=== PATIENT | male | born 1980 | race Two or more races ===

== ENCOUNTER 2021-12-21 10:39 | Emergency (ER) | payer SELFPAY ==
[~2021-12-21] VITALS: Ht 160 cm; Wt 81.8 kg
--- NOTE | 2021-12-21 11:17 | EKG ---
[facility] [address] [place] [id number] Test Date: 2021-12-21 Test Time: 10:50:43 Pat Name: CLIVE SIMEON Department: Room: Gender: M Video Game Creator: : 1980 Requested By: DILCIA Dumas Number: [id number] Reading MD: Dandy Cruz Measurements Intervals [place] Rate: 63 P: 51 PA: 146 QRS: 54 QRSD: 86 T: 44 QT: 388 QTc: 400 Interpretive Statements SINUS RHYTHM NORMAL ECG RI6.02 No previous ECG available for comparison Electronically Signed On 12-23-2021 10:09:39 CDT by Dandy Cruz
[2021-12-21 11:29] LABS: BASO % 1 % (0-3); EOS # 0.1 x10^3/uL (0.0-0.7); EOS % 2 % (0-3); HEMATOCRIT 41.5 % (39.0-53.0); HEMOGLOBIN 14.8 g/dL (13.0-17.5); LYMPH # 1.5 x10^3/uL (1.0-4.8); LYMPH % 29 % (24-48); MEAN CORPUSCULAR HEMOGLOBIN 32 pg (25-35); MEAN CORPUSCULAR HGB CONC 36 g/dL (31-37); MEAN CORPUSCULAR VOLUME 89 fL (79-100); MONO # 0.6 x10^3/uL (0.0-1.1); MONO % 11 % (0-9); NEUT % 57 % (31-73); PLATELET COUNT 245 x10^3/uL (140-400); RED BLOOD COUNT 4.69 x10^6/uL (4.30-5.70); RED CELL DISTRIBUTION WIDTH 12.5 % (11.5-14.5); WHITE BLOOD COUNT 5.3 x10^3/uL (4.0-11.0)
[2021-12-21] MEDS ORDERED: ASPIRIN 325 MG TABLET PO ONE (11:30)
[2021-12-21 11:40] LABS: CALCIUM 8.3 mg/dL (8.5-10.1); CREATININE 1.1 mg/dL (0.7-1.3); GFR 74.1; POTASSIUM 3.7 mmol/L (3.5-5.1)
--- NOTE | 2021-12-21 11:45 | RAD ---
EXAM: Chest, single view. HISTORY: Chest pain. COMPARISON: None. FINDINGS: A frontal view of the chest is obtained. There is no infiltrate, pleural effusion or pneumo thorax. The heart is normal in size. IMPRESSION: No acute pulmonary finding. Electronically signed by: Liudmila Curran MD (12/21/2021 11:43 AM) [id number]
[2021-12-21 11:47] LABS: ALBUMIN 3.2 g/dL (3.4-5.0); ALBUMIN/GLOBULIN RATIO 0.9 (1.0-1.7); MAGNESIUM 2.1 mg/dL (1.8-2.4); TOTAL BILIRUBIN 0.5 mg/dL (0.2-1.0); TOTAL PROTEIN 6.8 g/dL (6.4-8.2)
--- NOTE | 2021-12-21 12:14 | PHYS DOC ---
Past Medical History Past Surgical History: No Surgical History Smoking Status: Never Smoker Alcohol Use: None General Adult EDM: Chief Complaint: CHEST PAIN HPI: HPI: Patient is a 41 year old male who presents with 1 week of left-sided chest pain, he states that the pain is sharp, near his left shoulder and also present in his left scapular region in his back. Patient states that he had a cough recently about 2 weeks ago that lasted for a week, after about a week of coughing, the chest pain started. It is exacerbated by movement, picking up things, moving the left shoulder, and sometimes by touching the left chest or back. Patient is otherwise doing well. He has no shortness of breath or any other symptoms. He has no cardiac history, no family history, no diabetes, no dyslipidemia, no hypertension. Review of Systems: Review of Systems: Constitutional: Denies fever or chills. [] Eyes: Denies change in visual acuity. [] HENT: Denies nasal congestion or sore throat. [] Respiratory: Denies cough or shortness of breath. [] Cardiovascular: Positive left-sided chest pain and left back pain, no edema. [] GI: Denies abdominal pain, nausea, vomiting, bloody stools or diarrhea. [] : Denies dysuria. [] Musculoskeletal: Positive left back pain near the scapula [] Integument: Denies rash. [] Neurologic: Denies headache, focal weakness or sensory changes. [] Endocrine: Denies polyuria or polydipsia. [] Lymphatic: Denies swollen glands. [] Psychiatric: Denies depression or anxiety. [] Heart Score: C/O Chest Pain: Yes HEART Score for Chest Pain: HEART Score for Chest Pain Response (Comments) Value History Slighlty/Non-Suspicious 0 ECG Normal 0 Age < 45 0 Risk Factors No Risk Factors 0 Troponin < Normal Limit 0 Total 0 Risk Factors: Risk Factors: DM, Current or recent (<one month) smoker, HTN, HLP, family history of CAD, obesity. Risk Scores: Score 0 - 3: 2.5% MACE over next 6 weeks - Discharge Home Score 4 - 6: 20.3% MACE over next 6 weeks - Admit for Clinical Observation Score 7 - 10: 72.7% MACE over next 6 weeks - Early Invasive Strategies Current Medications: Current Medications Medications (Trade) Dose Ordered Sig/Hermelindo Start Time Stop Time Status Last Admin Dose Admin Aspirin (Lina Aspirin) 325 mg 1X ONCE 12/21/21 11:30 12/21/21 11:31 DC 12/21/21 11:09 325 MG Allergies: Allergies: Allergies Coded Allergies Type Severity Reaction Last Updated Verified No Known Drug Allergies 12/21/21 No Physical Exam: PE: Constitutional: Well developed, well nourished, no acute distress, non-toxic appearance. [] HENT: Normocephalic, atraumatic, bilateral external ears normal, oropharynx moist, no oral exudates, nose normal. [] Eyes: PERRLA, EOMI, conjunctiva normal, no discharge. [] Neck: Normal range of motion, no tenderness, supple, no stridor. [] Cardiovascular:Heart rate regular rhythm, no murmur, reproducible tenderness on the left chest near the shoulder joint [] Lungs & Thorax: Bilateral breath sounds clear to auscultation [] Abdomen: Bowel sounds normal, soft, no tenderness, no masses, no pulsatile masses. [] Skin: Warm, dry, no erythema, no rash. [] Back: No tenderness, no CVA tenderness. [] Extremities: No tenderness, no cyanosis, no clubbing, ROM intact, no edema. [] Neurologic: Alert and oriented X 3, normal motor function, normal sensory function, no focal deficits noted. [] Psychologic: Affect normal, judgement normal, mood normal. [] Current Patient Data: Labs: Laboratory Tests Test 12/21/21 11:15 White Blood Count 5.3 x10^3/uL (4.0-11.0) Red Blood Count 4.69 x10^6/uL (4.30-5.70) Hemoglobin 14.8 g/dL (13.0-17.5) Hematocrit 41.5 % (39.0-53.0) Mean Corpuscular Volume 89 fL (79-100) Mean Corpuscular Hemoglobin 32 pg (25-35) Mean Corpuscular Hemoglobin Concent 36 g/dL (31-37) Red Cell Distribution Width 12.5 % (11.5-14.5) Platelet Count 245 x10^3/uL (140-400) Neutrophils (%) (Auto) 57 % (31-73) Lymphocytes (%) (Auto) 29 % (24-48) Monocytes (%) (Auto) 11 % (0-9) H Eosinophils (%) (Auto) 2 % (0-3) Basophils (%) (Auto) 1 % (0-3) Neutrophils # (Auto) 3.0 x10^3/uL (1.8-7.7) Lymphocytes # (Auto) 1.5 x10^3/uL (1.0-4.8) Monocytes # (Auto) 0.6 x10^3/uL (0.0-1.1) Eosinophils # (Auto) 0.1 x10^3/uL (0.0-0.7) Basophils # (Auto) 0.0 x10^3/uL (0.0-0.2) Sodium Level 142 mmol/L (136-145) Potassium Level 3.7 mmol/L (3.5-5.1) Chloride Level 109 mmol/L (98-107) H Carbon Dioxide Level 25 mmol/L (21-32) Anion Gap 8 (6-14) Blood Urea Nitrogen 19 mg/dL (8-26) Creatinine 1.1 mg/dL (0.7-1.3) Estimated GFR (Cockcroft-Gault) 74.1 BUN/Creatinine Ratio 17 (6-20) Glucose Level 116 mg/dL (70-99) H Calcium Level 8.3 mg/dL (8.5-10.1) L Magnesium Level 2.1 mg/dL (1.8-2.4) Total Bilirubin 0.5 mg/dL (0.2-1.0) Aspartate Amino Transferase (AST) 20 U/L (15-37) Alanine Aminotransferase (ALT) 33 U/L (16-63) Alkaline Phosphatase 61 U/L (46-116) Troponin I High Sensitivity 5 ng/L (4-75) XA-Qee-C-Type Natriuretic Peptide 48 pg/mL (0-124) Total Protein 6.8 g/dL (6.4-8.2) Albumin 3.2 g/dL (3.4-5.0) L Albumin/Globulin Ratio 0.9 (1.0-1.7) L Thyroid Stimulating Hormone (TSH) 1.139 uIU/mL (0.358-3.74) Laboratory Tests 12/21/21 11:15 Laboratory Tests 12/21/21 11:15 Vital Signs: Vital Signs Date Time Temp Pulse Resp B/P (MAP) Pulse Ox O2 Delivery O2 Flow Rate FiO2 12/21/21 10:48 98.1 66 20 125/58 (80) 97 Room Air 98.1 EKG: EKG: Normal sinus rhythm [] Radiology/Procedures: Radiology/Procedures: Chest x-ray, no acute abnormality [] Impression: Atypical chest pain, costochondritis Course & Med Decision Making: Course & Med Decision Making Pertinent Labs and Imaging studies reviewed. (See chart for details) 41-year-old male with no prior medical history presents with left-sided chest pain after 1 week of cough. Chest pain has been present for 1 week. Labs and EKG within normal limits as well as chest x-ray. Discussed findings with the patient, heart score is 1. Patient will be discharged home to follow-up with primary care physician in 1 to 2 weeks. Patient states that he understands and will follow-up, he states that he will make an appointment when he gets home. Patient agrees with plan of action as well as follow-up. All questions answered, hemodynamically stable at the time of discharge. Nereida Disclaimer: Nereida Disclaimer: This electronic medical record was generated, in whole or in part, using a voice recognition dictation system. Departure Departure Impression: Primary Impression: Atypical chest pain Additional Impression: Costochondritis Disposition: 01 HOME / SELF CARE / HOMELESS Condition: GOOD Patient Instructions: Chest Pain (Nonspecific), [id number] Additional Instructions: Follow-up with your primary care physician in 2 weeks You may return to the emergency department if you have worsening or new symptoms Your labs and EKG and chest x-ray all look good DILCIA FLORES MD December 21, 2021 12:14
[2021-12-21 12:21] VITALS: BP 110/56
== END 2021-12-21 12:57 | disposition home or self-care (01) ==
LOC: ER 10:39
DX: M94.0 Chondrocostal junction syndrome [Tietze] (principal)
CPT/HCPCS: 36415; 71045; 80053; 83735; 83880; 84443; 84484; 85025; 93005; 99285-25